=== PATIENT | female | born 1970 | race Caucasian/White ===

== ENCOUNTER 2021-01-02 17:06 | Emergency (ER) | payer OTHER, SELFPAY ==
[2021-01-02 17:07] VITALS: BP 139/85; PULSE 82; RESP 15; TEMP 36.6; O2SAT 97; BMI 47.5
--- NOTE | 2021-01-02 17:35 | RAD_ITS ---
STUDY: X-RAY - PELVIS AND LEFT HIP REASON FOR EXAM: Female, 50 years old. Injury/Pain TECHNIQUE: 3 views of the pelvis and hip. COMPARISON: None. FINDINGS: There is a non-specific bowel gas pattern. Normal visualized soft tissue structures. No demonstrated acute fracture. Normal bilateral iliac wings, sacroiliac joints and visualized sacrum. Normal bilateral superior and inferior pubic rami. There is narrowing with sclerosis of the pubic symphysis. Normal bilateral ischial tuberosities. Normal visualized femoral head. Normal acetabulum. Normal hip joint. RAD/HIP, UNI W/ Pelvis 2-3 Views IMPRESSION: No visualized acute fracture Electronically Signed: Curtis Chen MD at 18:35 EST , Service support ,
[2021-01-02] MEDS: fentaNYL 100 MCG/2 ML Ampul 50 MCG IM (17:55)
[2021-01-02] MEDS: Ondansetron ODT 4 MG Tablet PO ×2 (17:56→20:10)
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
[2021-01-02 19:53] VITALS: BP 119/74; PULSE 81; RESP 16; O2SAT 98
[2021-01-02] MEDS: oxyCODONE 5 MG Tablet PO ×2 (19:55→20:10)
== END 2021-01-02 20:11 | disposition home or self-care (01) ==
PROVIDERS: Emergency Provider Emergency Medicine; PCP Family Medicine
DX: S32.592A Other specified fracture of left pubis, initial encounter for closed fracture (principal); V80.928A Occupant of animal-drawn vehicle injured in other transport accident, initial encounter
CPT/HCPCS: 73502; 73700; 96372; 99285

== ENCOUNTER 2021-01-14 17:07 | Emergency (ER) | payer SELFPAY ==
[2021-01-14 17:07] VITALS: BP 153/90; PULSE 93; RESP 16; TEMP 36.2; O2SAT 98; BMI 45.1
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
[2021-01-14 17:48] LABS: Absolute Lymphocyte Count 2.55 X10^3/uL (0.83-4.51); Absolute Neutrophil Count 5.7 X10^3/uL (2.0-7.7); Basophil# 0.03 X10^3/uL; Basophil% 0.3 % (0-1); Eosinophil# 0.25 X10^3/uL; Eosinophils% 2.7 % (0-5); Hematocrit 34.1 % (37-47); Hemoglobin 10.4 g/dL (12.0-15.0); Lymphocyte # 2.55 X10^3/ul (4.0); Lymphocyte % 27.9 % (19-41); Mean Corp Hgb Conc 30.5 g/dL (32-36); Mean Corpuscular Hgb 25.2 pg (27.0-32.0); Mean Corpuscular Volume 82.8 fL (81-99); Mean Platelet Vol. 8.9 fl (6.2-12.0); Monocyte# 0.58 X10^3/uL; Monocyte% 6.4 % (0-10); NRBC Flagged by Analyzer 0 % (0-5); Neutrophil # 5.68 X10^3/uL (2.7-7.7); Neutrophil % 62.3 % (47-70); Platelet Count 319 K/mm3 (150-450); RBC Distribution Width CV 15.4 % (11.6-14.6); RBC Distribution Width SD 46.5 fl (35.1-43.9); Red Blood Count 4.12 M/mm3 (4.2-5.4); White Blood Count 9.1 K/mm3 (4.4-11.0)
[2021-01-14 18:06] LABS: ALB/GLOB Ratio 0.7 RATIO (0.9-2.4); AST(SGOT) 13 U/L (15-37); Alanine Aminotransfer ALT/SGPT 30 U/L (13-56); Albumin, Serum 3.1 g/dL (3.2-5.0); Alkaline Phosphatase 75 U/L (45-117); Anion Gap 6 (5-15); BUN 12 mg/dL (7-18); BUN/Creat Ratio 12.9 RATIO (10-20); Calcium,Total 8.8 mg/dL (8.5-10.1); Chloride 104 mmol/L (98-107); Creatinine, Serum 0.93 mg/dL (0.55-1.02); EST Glomerular Filtration Rate 68 mL/min (>60); Est Glom Filt Rate - Afr Amer 82 mL/min (>60); Estimated Creatinine Clearance 69.25 ml/min; Globulin 4.2 g/dL (2.2-4.2); Glucose 100 mg/dL (74-106); Potassium 3.6 mmol/L (3.5-5.1); Protein, Total 7.3 g/dL (6.4-8.2); Sodium Level 140 mmol/L (136-145)
[2021-01-14 18:52] VITALS: BP 129/74; PULSE 62; RESP 15; O2SAT 98
[2021-01-14] MEDS: APIXABAN 5 MG TABLET 10 MG PO (18:52)
== END 2021-01-14 18:52 | disposition home or self-care (01) ==
PROVIDERS: Emergency Provider Emergency Medicine; PCP Family Medicine
DX: I82.812 Embolism and thrombosis of superficial veins of left lower extremity (principal); E66.9 Obesity, unspecified; I10 Essential (primary) hypertension
CPT/HCPCS: 80053; 85025; 93971; 99284; A4216

== ENCOUNTER 2023-05-29 18:42 | Emergency (ER) | payer OTHER, SELFPAY ==
[2023-05-29 18:43] VITALS: BP 149/87; PULSE 79; RESP 14; TEMP 36.2; O2SAT 97; BMI 46.7
--- NOTE | 2023-05-29 20:10 | RAD_ITS ---
INDICATION: pain EXAMINATION/TECHNIQUE: X-RAY - LEFT XR Knee Complete 4 Views or More COMPARISON: None. FINDINGS: 4 views of the left knee. BONES: Normal anatomic alignment without evidence of fracture or subluxation. No concerning bony lesion or abnormal sclerosis to suggest lesion. JOINTS: Minimal patellofemoral degenerative change. SOFT TISSUES: Unremarkable. RAD/Knee 4 or More Views IMPRESSION: No acute osseous abnormality of the left knee. Electronically Signed: Bruno Sheppard MD at 20:50 EDT ,
--- NOTE | 2023-05-29 20:36 | EX.ED.DYSGE1 ---
HPI <MARYJANE Sidhu - Last Filed: 05/29/23 20:58> History of Present Illness Chief Complaint: Lower Extremity Injury Narrative Narrative: Patient is a 52-year-old female history depression, hypothyroidism, hypertension presents to the emergency department with 10 days of left knee pain. 10 days ago, the patient missed her step, striking her left knee. Patient presents to the emergency department worsening swelling, redness and is here for evaluation PFSH <MARYJANE Sidhu - Last Filed: 05/29/23 20:58> [facility] Home Medications Alprazolam 5 mg PO TID 01/14/21 [History Last Taken Unknown] apixaban 5 mg tablet 5 mg PO BID #74 tabs 01/14/21 [Rx Last Taken Unknown] aripiprazole 5 mg tablet 5 mg PO QHS 01/14/21 [History Last Taken Unknown] bupropion HCl 150 mg tablet,12 hr sustained-release 150 mg PO BID 01/14/21 [History Last Taken Unknown] fluoxetine 20 mg capsule 20 mg PO BID 01/14/21 [History Last Taken Unknown] hydrochlorothiazide 50 mg tablet 50 mg PO DAILY 01/14/21 [History Last Taken Unknown] levothyroxine 50 mcg tablet 50 mcg PO DAILY 01/14/21 [History Last Taken Unknown] metoprolol tartrate 25 mg tablet 25 mg PO BID 01/14/21 [History Last Taken Unknown] Allergy/AdvReac Type Severity Reaction Status Date / Time No Known Allergies Allergy Verified 01/14/21 17:09 Social History Smoking Status: Never smoker ROS <MARYJANE Sidhu - Last Filed: 05/29/23 20:58> ROS ED ROS Narrative Constitutional: Negative for fever, chills, weight loss, weakness Eyes: Negative for vision loss, vision change, double vision ENT: Negative for any sore throat, ear pain, congestion Cardiovascular: Negative for any chest pain, tightness, palpitations Respiratory: Negative for any cough, sputum production, hemoptysis, dyspnea, dyspnea on exertion, orthopnea Gastrointestinal: Negative for any abdominal pain, nausea, vomiting, diarrhea, constipation, blood in stool, blood in vomit : Negative for any urinary frequency, dysuria, retention, blood in urine Muscle skeletal: Negative for any muscle joint pain, stiffness, myalgias, arthralgias, neck pain, back pain. Positive for left knee pain, left knee swelling Neurological: Negative for any headache, syncope, numbness or tingling, dizziness Skin: Negative for any rashes, lumps, itching, abrasions, lacerations Psychiatric: Negative for any depression, anxiety, stress, suicidal ideation, homicidal ideation Hematologic: Negative for any easy bruising, excessive bruising, easy bleeding Allergies: Negative for any eczema, hives, rash EXAM <MARYJANE Sidhu - Last Filed: 05/29/23 20:58> Physical Exam Narrative Exam Narrative: Vital signs reviewed. Extremities: Patient has ecchymosis, edema, slight redness to the anterior aspect of the left lower extremity. There is bruising surrounding the knee, edema however there is erythema that is going down to the mid arias. It is painful to the touch. Intact extensor mechanism. Neuro: Cranial nerves II through XII intact, no focal neurological deficits. Skin: Clean dry and intact with no rash, purpura, petechiae, vesicles or pustules. Backs/flank: No CVA tenderness, no midline spinal tenderness, no deformity. Psych: Normal mood and affect. No SI, HI or acute psychosis. Const Vital Signs: 05/29/23 18:43 Temperature 97.1 F L Temperature Source Temporal Pulse Rate 79 Respiratory Rate 14 Blood Pressure 149/87 H Blood Pressure Mean 107 Pulse Ox 97 Oxygen Delivery Method Room Air <Dr. Karthik Herrera MD - Last Filed: 05/29/23 21:00> Physical Exam Const Vital Signs: 05/29/23 18:43 Temperature 97.1 F L Temperature Source Temporal Pulse Rate 79 Respiratory Rate 14 Blood Pressure 149/87 H Blood Pressure Mean 107 Pulse Ox 97 Oxygen Delivery Method Room Air MDM <MARYJANE Sidhu - Last Filed: 05/29/23 20:58> MDM Radiography Diagnostic Testing: Clinical Impression(s) from Imaging Studies Knee X-Ray 05/29/23 20:10 IMPRESSION: No acute osseous abnormality of the left knee. Electronically Signed: Bruno Sheppard MD at 20:50 EDT , Treatment and Re-Evaluation :: Patient appears generally well, patient appears nontoxic, vital signs are stable. Patient presents to the emergency department with swelling to the left knee following a mechanical fall 10 days ago. Patient did receive an x-ray of the left knee, this showed no acute process. I believe that the discoloration as well as a slight redness is inflammatory in nature. The patient has not been elevating and icing. Patient has no red flag signs, intact extensor mechanism. At this time, patient will be diagnosed with a fall, left knee contusion. Patient will ice and elevate given ibuprofen for home. She will follow-up with her PCP. All questions answered, patient stable for discharge <Dr. Karthik Herrera MD - Last Filed: 05/29/23 21:00> [facility] MDM Narrative Medical decision making narrative: I have personally performed a face to face assessment of the patient and have reviewed the KHUSHBOO Note. I performed a substantive portion of the visit including all aspects of the following. 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 Fell about 10 days ago landed awkwardly on her knee on the ground. Has had bruising and swelling. Went to an urgent care tonight and referred to the emergency department. Able to walk. Denies other injuries or complaints. 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 Vital signs stable afebrile. HEENT exam unremarkable. Lungs are clear. Heart regular rhythm. Chest wall nontender. Abdomen soft nontender. Moving all 4 extremities. Left knee has bruising and mild swelling and also bruising on the proximal aspect of the left lower leg. No bony deformity. She has full flexion extension of her left hip, left knee, left ankle and foot. Normal dorsi plantarflexion. Left foot is neurovascular intact. Skin intact. No cellulitis. Resolving bruising in different stages. Full range of motion to the knee.] Medical Decision Making [x-ray obtained left knee. Soft tissue swelling. No fracture. No dislocation. Discharged home. Ice and elevate. Tylenol and Motrin. Follow-up.] Other additions or changes: [None] Radiography Diagnostic Testing: Clinical Impression(s) from Imaging Studies Knee X-Ray 05/29/23 20:10 IMPRESSION: No acute osseous abnormality of the left knee. Electronically Signed: Bruno Sheppard MD at 20:50 EDT , Left knee x-ray. 4 views. Interpreted both by myself and the radiologist shows no acute abnormality. Soft tissue swelling. No fracture or dislocation. Discharge Plan Triage Chief Complaint: Lower Extremity Injury ED Midlevel Provider: Julio Cesar Hagan ED Provider: Karthik Herrera Dx/Rx/DC Orders Clinical Impression: Acute knee pain, Contusion Instructions: Knee Pain, ED Knee Effusion Prescriptions: No Action Alprazolam 0.5 MG tablet 5 mg PO TID bupropion HCl 150 MG tablet sustained-release 12 hr 150 mg PO BID hydrochlorothiazide 50 MG tablet 50 mg PO DAILY levothyroxine 50 MCG tablet 50 mcg PO DAILY fluoxetine 20 MG capsule 20 mg PO BID aripiprazole 5 MG tablet 5 mg PO QHS metoprolol tartrate 25 MG tablet 25 mg PO BID apixaban 5 MG tablet 5 mg PO BID Qty: 74 0RF Rx Instructions: 10 mg twice a day for the first week. Then 5 mg twice a day. Primary Care Provider: Bart Han Referrals: Bart Han DO [Primary Care Provider] -
[2023-05-29 21:00] VITALS: PULSE 70; RESP 14; O2SAT 98
== END 2023-05-29 21:10 | disposition home or self-care (01) ==
LOC: ED 21:07
PROVIDERS: Emergency Provider Emergency Medicine; PCP Family Medicine; Visit Provider Emergency Medicine
DX: S80.02XA Contusion of left knee, initial encounter (principal); M25.562 Pain in left knee; X58.XXXA Exposure to other specified factors, initial encounter
CPT/HCPCS: 73564; 99282

== ENCOUNTER → 2023-07-31 | Outpatient (CLI) | payer SELFPAY ==
--- NOTE | 2023-07-31 13:57 | EKG12_ITS ---
Test Reason : PRE OP Blood Pressure : / mmHG Vent. Rate : 079 BPM Atrial Rate : 079 BPM P-R Int : 176 ms QRS Dur : 108 ms QT Int : 400 ms P-R-T Axes : 024 -44 036 degrees QTc Int : 458 ms Normal sinus rhythm Left axis deviation Abnormal ECG Confirmed by GIANA CARRILLO, HARRY ([id number]), market editor JOSHUA VERGARA ([id number]) on 08/03/2023 1:53:54 PM Referred By: Katherine Templeton Confirmed By:HARRY FARIA MD
[2023-07-31 14:32] LABS: Absolute Lymphocyte Count 2.81 X10^3/uL (0.83-4.51); Absolute Neutrophil Count 5.5 X10^3/uL (2.0-7.7); Basophil# 0.04 X10^3/uL; Basophil% 0.4 % (0-1); Eosinophil# 0.18 X10^3/uL; Eosinophils% 1.9 % (0-5); Hematocrit 36.9 % (37-47); Lymphocyte # 2.81 X10^3/ul (0.83-4.51); Mean Corp Hgb Conc 32.5 g/dL (32-36); Mean Corpuscular Hgb 27.4 pg (27.0-32.0); Mean Corpuscular Volume 84.2 fL (81-99); Mean Platelet Vol. 9.4 fl (6.2-12.0); Monocyte% 8.5 % (0-10); NRBC Flagged by Analyzer 0 % (0-5); Neutrophil % 58.9 % (47-70); Platelet Count 259 K/mm3 (150-450); RBC Distribution Width CV 13.8 % (11.6-14.6); RBC Distribution Width SD 42.5 fl (35.1-43.9); Red Blood Count 4.38 M/mm3 (4.2-5.4); White Blood Count 9.4 K/mm3 (4.4-11.0)
[2023-07-31 14:56] LABS: Anion Gap 3 (5-15); BUN 21 mg/dL (7-18); BUN/Creat Ratio 17.9 RATIO (10-20); Calcium,Total 9.4 mg/dL (8.5-10.1); Chloride 102 mmol/L (98-107); Creatinine, Serum 1.17 mg/dL (0.55-1.02); EST Glomerular Filtration Rate 52 mL/min (>60); Est Glom Filt Rate - Afr Amer 63 mL/min (>60); Glucose 112 mg/dL (74-106); Potassium 2.9 mmol/L (3.5-5.1); Sodium Level 139 mmol/L (136-145)
== END | disposition home or self-care (01) ==
PROVIDERS: PCP Family Medicine; Referring Provider Physician Assistant; Visit Provider Physician Assistant
DX: Z01.818 Encounter for other preprocedural examination (principal); I10 Essential (primary) hypertension
CPT/HCPCS: 36415; 80048; 85025; 93005